=== PATIENT | male | born 1980 | race Caucasian/White ===

== ENCOUNTER 2019-05-13 20:11 | Emergency (ER) | payer OTHER ==
[2019-05-13] MEDS ORDERED: predniSONE 20 MG Tab PO ONE (21:17)
--- NOTE | 2019-05-13 21:30 | EDM.PDOC ---
ED HPI GENERAL MEDICAL PROBLEM - General Chief Complaint: Allergic Reaction Stated Complaint: ALLERGIC REACTION Time Seen by Provider: 05/13/19 20:46 Source of Information: Reports: Patient History Limitations: Reports: No Limitations - History of Present Illness INITIAL COMMENTS - FREE TEXT/NARRATIVE: 39 yo male presents with rash to neck, back and arms. rash started 4 days ago and has worsened. He is working with a [employer] He indicates that his rash is from the waist up and worse on his neck and face. The rash is worse in areas of increase sweat. very itchy. He did take benydryl last night and this helped with the itch. Bilateral Thoracic Pain Score (Numeric/FACES): 6 - Related Data Allergies Allergy/AdvReac Type Severity Reaction Status Date / Time Penicillins Allergy Swelling Verified 05/13/19 20:47 Home Meds: Home Meds NK [No Known Home Meds] 05/13/19 [History] Past Medical History - Past Health History Medical/Surgical History: Denies Medical/Surgical History Musculoskeletal History: Reports: Fracture Other Musculoskeletal History: fingers and toes Other Dermatologic History: polymorphic light exposure Social & Family History - Tobacco Use Smoking Status *Q: Current Every Day Smoker Years of Tobacco use: 15 Packs/Tins Daily: 1 - Caffeine Use Caffeine Use: Reports: Coffee, Soda, Tea - Recreational Drug Use Recreational Drug Use: No ED ROS GENERAL - Review of Systems Review Of Systems: See Below Constitutional: Denies: Fever, Chills, Fatigue Respiratory: Denies: Shortness of Breath, Wheezing, Cough Cardiovascular: Denies: Chest Pain, Lightheadedness GI/Abdominal: Denies: Abdominal Pain, Diarrhea, Nausea Skin: Reports: Rash ED EXAM, SKIN/RASH Exam: See Below Exam Limited By: No Limitations General Appearance: Alert, WD/WN, No Apparent Distress Neck: Normal Inspection, Supple, Non-Tender, Full Range of Motion Respiratory/Chest: No Respiratory Distress, Lungs Clear, Normal Breath Sounds. No: Crackles, Rhonchi, Wheezing Cardiovascular: Regular Rate, Rhythm, No Murmur GI/Abdominal: Normal Bowel Sounds, Soft, Non-Tender Back Exam: Normal Inspection, Full Range of Motion. No: CVA Tenderness (R), CVA Tenderness (L) Skin: Warm, Dry, Intact, Rash Location, Skin: Head, Face, Neck, Chest, Back Characteristics: Maculopapular, Erythematous Associated features: Warmth Lymphatic: No Adenopathy Course - Vital Signs Last Recorded V/S: Last Vital Signs Temp 97.9 C H 05/13/19 20:44 Pulse 96 05/13/19 20:44 Resp 14 05/13/19 20:44 BP 151/98 H 05/13/19 20:44 Pulse Ox 99 05/13/19 20:44 - Orders/Labs/Meds Meds: Medications Discontinued Medications Generic Name Dose Route Start Last Admin Trade Name Sandra PRN Reason Stop Dose Admin Prednisone 20 mg 05/13/19 21:17 05/13/19 21:27 Prednisone PO 05/13/19 21:18 20 mg ONETIME ONE Administration - Re-Assessments/Exams Free Text/Narrative Re-Assessment/Exam: 05/13/19 21:35 MSDS sheet reviewed for [employer] stating this was a dermal contact hazard and should be treated as an allergic rxn. Initially pt was offered IV hydration and IV steroid. Pt did refuse IV requesting oral. pt was given Prednisone in ER and prescription for 7 days Departure - Departure Time of Disposition: 21:29 Disposition: Home, Self-Care 01 Condition: Good Clinical Impression: Contact dermatitis Qualifiers: Contact dermatitis type: allergic Contact dermatitis trigger: other chemical product Qualified Code(s): L23.5 - Allergic contact dermatitis due to other chemical products - Discharge Information *PRESCRIPTION DRUG MONITORING PROGRAM REVIEWED*: Not Applicable *COPY OF PRESCRIPTION DRUG MONITORING REPORT IN PATIENT MUKESH: Not Applicable Instructions: Rash, [id number] Referrals: PCP,None [Primary Care Provider] - Forms: ED Department Discharge Additional Instructions: prednisone for 7 days. take this medication in the AM benydryl as needed for itching increase fluid intake to 2 liters per day it may take a week or more for rash to resolve avoid contact with chemical
== END 2019-05-13 21:36 | disposition home or self-care (01) ==
LOC: JP.ED 20:11
DX: T60.3X1A Toxic effect of herbicides and fungicides, accidental (unintentional), initial encounter (principal); F17.210 Nicotine dependence, cigarettes, uncomplicated; Z88.0 Allergy status to penicillin
CPT/HCPCS: 99282; A9270; 99283